=== PATIENT | male | born 1985 | race Caucasian/White ===

== ENCOUNTER 2016-11-11 01:14 | Emergency (ER) ==
[2016-11-11 01:26] VITALS: BP 153/103
--- NOTE | 2016-11-12 00:31 | EKG REPORT ---
SEVERITY:- BORDERLINE ECG - SINUS RHYTHM BORDERLINE PROLONGED QT INTERVAL NONSPECIFIC T CHANGES : Confirmed by: Ifeanyi Antoine 12-Nov-2016 00:30:00
== END 2016-11-11 01:41 | disposition left against medical advice (07) ==
LOC: ER 01:14
DX: Z53.21 Procedure and treatment not carried out due to patient leaving prior to being seen by health care provider (principal)
CPT/HCPCS: 93005; 93010

== ENCOUNTER 2016-11-11 04:41 | Emergency (ER) | payer SELFPAY ==
--- NOTE | 2016-11-11 05:33 | ER Document Report ---
ED Psych Disorder / Suicide - General Mode of Arrival: Ambulatory Information source: [facility], [facility] Records TRAVEL OUTSIDE OF THE [place] IN LAST 30 DAYS: No - HPI Patient complains to provider of: Suicidal ideation Onset: Other - 2 days ago Suicide Risk Factors: Depressed, Male Associated symptoms: Depressed <SNOIALICJA - Last Filed: 11/11/16 05:44> <DONG HILL - Last Filed: 11/11/16 06:35> <FRANKI MCELROY - Last Filed: 11/11/16 13:28> - General Chief Complaint: Psych Problem Stated Complaint: PSYCH EVAL Time Seen by Provider: 11/11/16 05:22 Notes: Patient is a 31-year-old male who presents to the emergency department this morning after just leaving this emergency department without being seen. Patient first came to the emergency department via EMS, wandered into a stranger 's room, and stated we were taking too long. He left, and promptly decided to return. Patient reports suicidal ideation for the past 2 days. Patient states he is visiting the [place] from [place]. When asked which [place] he was visiting he stated [place], and that he has been visiting for 1 year. Patient states he was not staying with anyone, he just came down "to see what would happen." (ALICJA SHAFER) 31-year-old male patient came to the emergency room just after 1 AM this morning , complaining of abdominal pain, diarrhea, auditory hallucinations, depression and suicidal ideations. He left without being seen when he did not get service quick enough to his liking. He checked back in again a few hours later. His responses are quite guarded and somewhat evasive and dishonest. The best I can tell is that he is homeless and has possibly been living in the [facility] for quite some time. I am told by the charge nurse that he came here EMS from [place]. He told me the reason for coming here rather than [facility] was that he was up in this area. (DONG HILL) - Related Data Allergies/Adverse Reactions: No Known Allergies Allergy (Unverified 11/11/16 01:26) Past Medical History - General Information source: [facility], [facility] Records - Social History Smoking Status: Current Every Day Smoker - 1 ppd Cigarette use (# per day): Yes - 20 Frequency of alcohol use: None Drug Abuse: None Family History: Reviewed & Not Pertinent Patient has suicidal ideation: Yes Patient has homicidal ideation: No Psychiatric Medical History: Reports: Hx Depression <ALICJA SHAFER - Last Filed: 11/11/16 05:44> - Social History Chew tobacco use (# tins/day): No Smoking Education Provided: No Drug Abuse: None - Denies drug use, but I suspect he is not being honest about this. <DONG HILL - Last Filed: 11/11/16 06:35> Review of Systems - Review of Systems Constitutional: No symptoms reported EENT: No symptoms reported Cardiovascular: No symptoms reported Respiratory: No symptoms reported Gastrointestinal: No symptoms reported Genitourinary: No symptoms reported Male Genitourinary: No symptoms reported Musculoskeletal: No symptoms reported Skin: No symptoms reported Hematologic/Lymphatic: No symptoms reported Neurological/Psychological: See HPI, Depression, Suicidal ideation -: Yes All other systems reviewed and negative <ALICJA SHAFER - Last Filed: 11/11/16 05:44> Physical Exam - General General appearance: Alert - HEENT Head: Normocephalic, Atraumatic Eyes: Normal Pupils: PERRL - Respiratory Respiratory status: No respiratory distress Chest status: Nontender Breath sounds: Normal Chest palpation: Normal - Cardiovascular Rhythm: Regular Heart sounds: Normal auscultation Murmur: No - Abdominal Inspection: Normal Tenderness: Nontender - Back Back: Normal, Nontender - Extremities General upper extremity: Normal inspection, Nontender General lower extremity: Normal inspection, Nontender - Neurological Neuro grossly intact: Yes Cognition: Normal Orientation: AAOx4 [place] Coma Scale Eye Opening: Spontaneous [place] Coma Scale Verbal: Oriented [place] Coma Scale Motor: Obeys Commands Severiano Coma Scale Total: 15 Speech: Normal - Psychological Associated symptoms: Depressed, Other - Very-well guarded in his responses, seems quite dishonest - Skin Skin Temperature: Warm Skin Moisture: Dry Skin Color: Noel - Very-well tanned. Suspect patient is likely homeless. <ALICJA SHAFER - Last Filed: 11/11/16 05:44> Course - EKG Interpretation by Me EKG shows normal: Sinus rhythm, [place], Intervals, QRS Complexes, ST-T Waves Rate: Normal Rhythm: NSR <DONG HILL - Last Filed: 11/11/16 06:35> - Laboratory Result Diagrams: 11/11/16 06:36 11/11/16 06:36 <FRANKI MCELROY - Last Filed: 11/11/16 13:28> - Vital Signs Vital signs: Temp Pulse Resp BP Pulse Ox 97.6 F 97 16 150/102 H 99 11/11/16 05:28 11/11/16 05:28 11/11/16 05:28 11/11/16 05:28 11/11/16 05:28 - Laboratory Laboratory results interpreted by me: 11/11/16 11/11/16 11/11/16 06:15 06:36 06:36 RDW 14.7 H Carbon Dioxide 21 L Direct Bilirubin 0.5 H Creatine Kinase Total Protein 8.6 H Urine Protein 30 H Urine Ketones TRACE H Urine Bilirubin SMALL H Urine Urobilinogen 2.0 H Ur Leukocyte Esterase SMALL H Salicylates < 1.0 L Acetaminophen < 10 L 11/11/16 12:10 RDW Carbon Dioxide Direct Bilirubin Creatine Kinase 202 H Total Protein Urine Protein Urine Ketones Urine Bilirubin Urine Urobilinogen Ur Leukocyte Esterase Salicylates Acetaminophen Discharge <ALICJA SHAFER - Last Filed: 11/11/16 05:44> <DONG HILL - Last Filed: 11/11/16 06:35> <FRANKI MCELROY - Last Filed: 11/11/16 13:28> - Discharge Clinical Impression: Suicidal ideation Depression Qualifiers: Depression Type: unspecified Qualified Code(s): F32.9 - Major depressive disorder, single episode, unspecified UTI (urinary tract infection) Qualifiers: Urinary tract infection type: site unspecified Hematuria presence: without hematuria Qualified Code(s): N39.0 - Urinary tract infection, site not specified Condition: Stable Disposition: HOME, SELF-CARE Instructions: Urinary Tract Infection ([facility]) Additional Instructions: Post-Traumatic Stress Disorder You seem to have post-traumatic stress disorder (PTSD). PTSD can cause chronic anxiety, sleeping problems, social withdrawal, and drug abuse. It can occur following a traumatic personal experience such as an accident, rape, assault, or of a loved one, or after experiencing a war or natural disaster. Symptoms may be delayed for days or even years. Emotional numbing, the inability to express grief, is usually the earliest sign. There may be apathy or agitation, aggression, and inability to perform ordinary tasks. Often there are frightening nightmares and sudden, intruding memories of the trauma. Panic attacks and feelings of guilt are common. Alcohol and drug use make post- traumatic stress symptoms worse. Medication may be temporarily necessary to combat anxiety, panic attacks, and depression. Medicine should not be considered a "cure." You must deal with the trauma and prepare to go on. Group therapy is often helpful. This helps you "talk through" the problem with others who share your symptoms. We can provide you with an appropriate referral. Please follow up with [facility] as a walk in. You have been given a list of resources to follow up with a mental health provider of your choice. Please return if your symptoms worsen. [facility] also has a 24/ crisis line you may access at any time. Prescriptions: Ciprofloxacin HCl [Cipro 500 mg Tablet] 500 mg PO BID #14 tablet Forms: Smoking Cessation Education Referrals: [facility] [Provider Group] - 11/11/16 (walk in ) Scribe Attestation: 11/11/16 06:16 I personally performed the services described in the documentation, reviewed and edited the documentation which was dictated to the scribe in my presence, and it accurately records my words and actions. (DONG HILL) Scribe Documentation - Scribe Written by Gayle:: Gayle Madrid, 11/11/2016 0533 acting as scribe for :: Sage <ALICJA SHAFER - Last Filed: 11/11/16 05:44>
[2016-11-11 06:43] LABS: APPEARANCE,URINE SLIGHTLY-CLOUDY; BILIRUBIN,URINE SMALL (NEGATIVE); GLUCOSE, URINE NEGATIVE (NEGATIVE); KETONES,URINE TRACE mg/dL (NEGATIVE); LEUKOCYTE ESTERASE,URINE SMALL (NEGATIVE); NITRITE,URINE NEGATIVE (NEGATIVE); PROTEIN,URINE 30 mg/dL (NEGATIVE); URINE SPECIFIC GRAVITY 1.033
[2016-11-11 06:54] LABS: ABSOLUTE BASOPHILS # (AUTO) 0.1 10^3/uL (0.0-0.2); ABSOLUTE LYMPHOCYTES (AUTO) 2.2 10^3/uL (0.5-4.7); ABSOLUTE MONOCYTES (AUTO) 0.9 10^3/uL (0.1-1.4); ABSOLUTE NEUT (AUTO) 6.8 10^3/uL (1.7-8.2); BASOPHILS % (AUTO) 1.1 % (0-2); EOSINOPHILS % (AUTO) 0.4 % (0-6); HEMOGLOBIN 14.8 g/dL (13.5-17.0); HGB HCT DIFFERENCE -0.6; LYMPHOCYTES % (AUTO) 21.6 % (13-45); MEAN CORPUSCULAR HEMOGLOBIN 27.3 pg (27.0-33.4); MEAN CORPUSCULAR HGB CONC 32.9 g/dL (32.0-36.0); MEAN CORPUSCULAR VOLUME 83 fl (80-97); MONOCYTES % (AUTO) 9.2 % (3-13); RED BLOOD COUNT 5.43 10^6/uL (4.35-5.55); RED CELL DISTRIBUTION WIDTH 14.7 % (11.5-14.0); SEGMENTED NEUTROPHILS % (AUTO) 67.7 % (42-78); WHITE BLOOD COUNT 10.1 10^3/uL (4.0-10.5)
[2016-11-11 06:56] LABS: URINE BARBITURATES SCREEN NEGATIVE; URINE METHADONE SCREEN NEGATIVE; URINE OPIATES LOW UNCONFIRMED POSITIVE; URINE PHENCYCLIDINE SCREEN NEGATIVE
[2016-11-11 07:09] LABS: ALANINE AMINOTRANSFERASE 37 U/L (21-72); ALBUMIN 4.4 g/dL (3.5-5.0); ALKALINE PHOSPHATASE 85 U/L (38-126); ANION GAP 15 (5-19); ASPARTATE AMINO TRANSFERASE 38 U/L (17-59); BILIRUBIN,DIRECT 0.5 mg/dL (0.0-0.4); BLOOD UREA NITROGEN 12 mg/dL (7-20); CARBON DIOXIDE 21 mmol/L (22-30); CHLORIDE 107 mmol/L (98-107); CREATININE RESULT 0.95 mg/dL (0.52-1.25); GLUCOSE 100 mg/dL (75-110); POTASSIUM 4.6 mmol/L (3.6-5.0); SODIUM 142.9 mmol/L (137-145); TOTAL PROTEIN 8.6 g/dL (6.3-8.2)
[2016-11-11 07:12] LABS: ALCOHOL < 10 mg/dL (NONE DETECTED)
--- NOTE | 2016-11-11 10:06 | EKG REPORT ---
SEVERITY:- NORMAL ECG - SINUS RHYTHM BORDERLINE T ABNORMALITIES, ANT-LAT LEADS CONSIDER ISCHEMIA : Confirmed by: Ifeanyi Antoine 11-Nov-2016 10:05:33
[2016-11-11] MEDS ORDERED: CIPROFLOXACIN HCL 500 MG TABLET PO ONE (10:49)
--- NOTE | 2016-11-11 10:51 | ER Document Report ---
Doctor's Note Notes: 11/11/16 10:50 Patient seen this morning and records reviewed. Patient states that he still feels sad this morning and does endorse SI. He is unable to tell me why he feels this way. Lab review demonstrates possible urinary tract infection. We will start antibiotics for this. Patient does state that he has had dysuria recently. At this point patient is medically stable for psychiatric disposition.
--- NOTE | 2016-11-11 11:22 | ER Document Report ---
ED Psych Disorder / Suicide - General Chief Complaint: Psych Problem Stated Complaint: PSYCH EVAL Time Seen by Provider: 11/11/16 05:22 Mode of Arrival: Ambulatory Information source: Patient TRAVEL OUTSIDE OF THE [place] IN LAST 30 DAYS: No - HPI Patient complains to provider of: Suicidal ideation - denied plan or means. Onset: Just prior to arrival Onset was: Sudden Suicide Risk Factors: Depressed, Other mental health dx. 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 Patient was held voluntarily overnight and this morning states he feels the same. Patient denies suicidal plan. Patient states he prefers to be homeless and does not want resources. Patient states he may be in the area for a while and would like resources for . Patient denies SA, despite his positive toxicology for amphetamines and marijuana. Patient denies any prior suicide attempts, but endorses previous ideations. Patient denies there is anyone to call on his behalf and states there is no family. Patient states he will walk into [facility] to request a Clinical Assessment to engage in services. Patient states he was walking [address] [facility] [address] last night and stopped at a gas station and called 911. Patient is A&O. Mood is euthymic, although patient reports depression. Patient endorses suicidal ideations, but denies intent, plan, or means. Patient denies homicidal ideations, intent, plan, or means. Patient denies A/V H; delusions not noted. Thought processes were organized. Conversational speech was WNL. Intellectual abilities were estimated within average range. Attention and focus were fair. Insight, judgment, and impulse control were fair. PTSD per history, Polusubstance Abuse Patient is psychiatrically cleared and recommended for discharge. Patient does not meet criteria for IVC as he denies suicidal plan or means. Patient denies prior attempts. Patient reports he his homeless by choice and denies offers of social resources. Patient is encouraged to follow up at [facility] as a walk in for outpatient services. - Related Data Allergies/Adverse Reactions: No Known Allergies Allergy (Unverified 11/11/16 01:26) Past Medical History - General Information source: [facility], [facility] - Social History Smoking Status: Current Every Day Smoker Cigarette use (# per day): Yes - 20 Chew tobacco use (# tins/day): No Frequency of alcohol use: None Drug Abuse: None Family History: Reviewed & Not Pertinent Patient has suicidal ideation: Yes Patient has homicidal ideation: No Renal/ Medical History: Denies: Hx Peritoneal Dialysis Psychiatric Medical History: Reports: Hx Depression, Hx Post Traumatic Stress Disorder Physical Exam - Vital signs Vitals: Temp Pulse Resp BP Pulse Ox 97.6 F 97 16 156/102 H 99 11/11/16 04:46 11/11/16 04:46 11/11/16 04:46 11/11/16 04:46 11/11/16 04:46 Course - Vital Signs Vital signs: Temp Pulse Resp BP Pulse Ox 97.6 F 97 16 150/102 H 99 11/11/16 05:28 11/11/16 05:28 11/11/16 05:28 11/11/16 05:28 11/11/16 05:28 - Laboratory Result Diagrams: 11/11/16 06:36 11/11/16 06:36 Laboratory results interpreted by me: 11/11/16 11/11/16 11/11/16 06:15 06:36 06:36 RDW 14.7 H Carbon Dioxide 21 L Direct Bilirubin 0.5 H Total Protein 8.6 H Urine Protein 30 H Urine Ketones TRACE H Urine Bilirubin SMALL H Urine Urobilinogen 2.0 H Ur Leukocyte Esterase SMALL H Salicylates < 1.0 L Acetaminophen < 10 L Discharge - Discharge Clinical Impression: Suicidal ideation Depression Qualifiers: Depression Type: unspecified Qualified Code(s): F32.9 - Major depressive disorder, single episode, unspecified Condition: Stable Disposition: HOME, SELF-CARE Additional Instructions: Post-Traumatic Stress Disorder You seem to have post-traumatic stress disorder (PTSD). PTSD can cause chronic anxiety, sleeping problems, social withdrawal, and drug abuse. It can occur following a traumatic personal experience such as an accident, rape, assault, or of a loved one, or after experiencing a war or natural disaster. Symptoms may be delayed for days or even years. Emotional numbing, the inability to express grief, is usually the earliest sign. There may be apathy or agitation, aggression, and inability to perform ordinary tasks. Often there are frightening nightmares and sudden, intruding memories of the trauma. Panic attacks and feelings of guilt are common. Alcohol and drug use make post- traumatic stress symptoms worse. Medication may be temporarily necessary to combat anxiety, panic attacks, and depression. Medicine should not be considered a "cure." You must deal with the trauma and prepare to go on. Group therapy is often helpful. This helps you "talk through" the problem with others who share your symptoms. We can provide you with an appropriate referral. Please follow up with [facility] as a walk in. You have been given a list of resources to follow up with a mental health provider of your choice. Please return if your symptoms worsen. [facility] also has a / crisis line you may access at any time. Forms: Smoking Cessation Education Referrals: [facility] [Provider Group] - 11/11/16 (walk in ) Scribe Attestation: 11/11/16 06:16 I personally performed the services described in the documentation, reviewed and edited the documentation which was dictated to the scribe in my presence, and it accurately records my words and actions.
[2016-11-11 13:11] LABS: CREATINE KINASE MB 2.45 ng/mL (<4.55)
[2016-11-11 13:16] LABS: TROPONIN I < 0.012 ng/mL
[2016-11-11 14:08] VITALS: BP 128/73
== END 2016-11-11 14:08 | disposition home or self-care (01) ==
LOC: ER 04:41
DX: R45.851 Suicidal ideations (principal); F32.9 Major depressive disorder, single episode, unspecified; N39.0 Urinary tract infection, site not specified; F17.210 Nicotine dependence, cigarettes, uncomplicated; Z59.0 Homelessness
CPT/HCPCS: 36415; 80053; 80307; 81001; 82550; 82553; 84484; 85025; 93005; 93010; 99284